=== PATIENT | female | born 1955 | race Caucasian/White ===

== ENCOUNTER 2017-04-17 16:37 | Emergency (ER) | payer OTHER ==
[2016-10-18 13:36] VITALS: BMI 24.8
[~2017-04-17 16:37] MED LIST: AMPICILLIN PO; CELEXA10 MG PO; GLUCOPHAGE500 MG PO; LISINOPRIL/HCTZ; LOPRESSOR25 MG PO; PRILOSEC20 MG PO
== END 2017-04-17 18:21 | disposition home or self-care (01) ==
LOC: D.ER 16:37
DX: S50.811A Abrasion of right forearm, initial encounter (principal); V43.52XA Car driver injured in collision with other type car in traffic accident, initial encounter; Y93.89 Activity, other specified; Y92.410 Unspecified street and highway as the place of occurrence of the external cause; S80.211A Abrasion, right knee, initial encounter; S20.219A Contusion of unspecified front wall of thorax, initial encounter; E11.9 Type 2 diabetes mellitus without complications; I10 Essential (primary) hypertension; F32.9 Major depressive disorder, single episode, unspecified

== ENCOUNTER 2018-10-23 10:05 | Day surgery (SDC) | payer OTHER ==
[~2018-10-23] VITALS: Ht 160 cm; Wt 68.0 kg
--- NOTE | ~2018-10-23 | OP ---
PATIENT NAME: KELVIN MORATAYA MEDICAL RECORD: [id number] :57 LOCATION:D.OPS ADMISSION DATE: SURGEON: AUDREY URBANO MD DATE OF OPERATION: 10/23/2018 PROCEDURE: EGD with biopsy. TRIM CREW SUPERVISOR: Audrey Urbano MD SCOPE: Olympus video gastroscope. MEDICATIONS: Per TIVA anesthesia. The patient received 150 mg of propofol for this procedure, O2 4 liters. INDICATION FOR THE PROCEDURE: Surveillance test for Le's esophagus. FINDINGS: Informed consent was given. The patient was made comfortable with the above medications after reaching an adequate level of sedation. By slow IV push, the patient was placed on her left side. The endoscope was then advanced under direct visualization through the posterior pharyngeal area and advanced to the distal esophagus. Evidence of Le's esophagus was appreciated in this area and multiple biopsies were obtained. The patient also had a hiatal hernia, which was small in size and was noted both on direct and retroflex views. On entering the stomach, the gastric mucosa was felt to be mildly inflamed throughout without erosions or ulcers. A histopathology H. pylori biopsy was taken at the antral area and sent to pathology for review. The duodenal bulb to the second portion had minimal inflammation present and a biopsy was taken in the second part of the duodenum. The scope was then withdrawn. IMPRESSION: 1. Very mild Le's esophagus, biopsied circumferentially. 2. Small hiatal hernia. 3. Mild gastritis, biopsy taken at the antral area. 4. Mild duodenitis, biopsy taken at the second part of the duodenum. PLAN: 1. The patient to follow reflux precautions stringently, both dietary and positional. No chocolate, tomato, citrus, caffeine, fatty foods, peppermint. The patient should avoid caffeine, tobacco, and alcohol if all of these are problematic. She should not lay down after for 2 hours after eating and sleep with the head of the bed elevated at least 6 inches if she refluxes during the nighttime hours. We will stop omeprazole and I have discussed this with the patient. This drug as well as all proton pump inhibitors can cause iron and calcium deficiency and leave the patient at some increased risk for viral and bacterial gastroenteritis. We will start her on famotidine at a dose of 40 mg p.o. b.i.d. and she should advise us if this is not helpful in controlling her Le's esophagus. 2. Caution with anti-inflammatory drugs. 3. Return to clinic on a p.r.n. basis. TRANSINT:[id number] Voice Confirmation ID: [id number] DOCUMENT ID: [id number] CC: Dr. Nelson Silva, not found OPERATIVE REPORT [id number] KELVIN MORATAYA BRENDA MD CC: OSIRIS DANIELSON MD [id number] DICTATION DATE: 10/23/18 1250 FARM INSTRUCTOR: 10/23/[address] [facility] [place] 10/23/18 [id number] [place] [address]
[2018-10-23 10:33] LABS: HEMATOCRIT 38.5 % (36.0-48.0); HEMOGLOBIN 12.4 g/dL (12-16); MCHC 32.2 g/dL (31.0-37.0); RBC 4.28 10x6/uL (4.00-5.40); RDW 13.5 % (11.5-14.5); WBC 7.3 10x3/uL (4.8-10.8)
[2018-10-23 10:43] VITALS: BP 121/40; Ht 160 cm; Wt 68.0 kg
[2018-10-23 10:48] LABS: ALBUMIN 3.9 g/dL (3.4-5.0); ANION GAP 12.6 mmol/L (8-16); BILIRUBIN - TOTAL 0.4 mg/dL (0.2-1.3); CALCIUM 8.6 mg/dL (8.5-10.1); CARBON DIOXIDE 29.7 mmol/L (21.0-32.0); CREATININE - SERUM 0.9 mg/dL (0.6-1.3); POTASSIUM - SERUM 4.3 mmol/L (3.5-5.1); PROTEIN - SERUM 7.6 g/dL (6.4-8.2)
--- NOTE | 2018-10-23 13:26 | NUR ---
PT GIVEN D/C INSTRUCTIONS AT THIS TIME, PT VERBALIZES UNDERSTANDING IV D/C AT THIS TIME, INTACT, NO REDNESS OR SWELLING AT SITE. PT AWAITING DR SANCHEZ TO SPEAK WITH THEM REGARDING PROCEDURE.
--- NOTE | 2018-10-23 13:55 | NUR ---
DR SANCHEZ SAW PT REGARDING PROCEDURE. PT LEFT UNIT AT 1356.
== END 2018-10-23 13:56 | disposition home or self-care (01) ==
LOC: D.OPS 10:05
PROVIDERS: Anesthesiology
DX: K22.70 Barrett's esophagus without dysplasia (principal); K44.9 Diaphragmatic hernia without obstruction or gangrene; K29.50 Unspecified chronic gastritis without bleeding; K29.80 Duodenitis without bleeding; Z01.812 Encounter for preprocedural laboratory examination

== ENCOUNTER 2018-11-13 10:50 | Day surgery (SDC) | payer OTHER ==
[~2018-11-13] VITALS: Ht 160 cm; Wt 68.2 kg
--- NOTE | ~2018-11-13 | OP ---
PATIENT NAME: KELVIN MORATAYA MEDICAL RECORD: [id number] :57 LOCATION:D.OPS ADMISSION DATE: SURGEON: AUDREY URBANO MD DATE OF OPERATION: 11/13/2018 PROCEDURE: Colonoscopy without biopsy or polypectomy. ORIENTAL RUG REPAIRER: Audrey Urbano MD SCOPE: Olympus video colonoscope. MEDICATIONS: Per TIVA. The patient had 200 mg of propofol IV push for this procedure, O2 at 4 liters. INDICATION FOR THE PROCEDURE: History of colon polyps. The patient's last colonoscopy was on 06/09/2014 and significant for normal small bowel, removal of a small polyp on the ileocecal valve with hot biopsy forceps technique, minimal left-sided diverticulosis without diverticulitis, and minimal hemorrhoids noted. The patient was seen to have spasm associated with irritable bowel syndrome as well as pelvic adhesions. She will have a recall surveillance colonoscopy on this date. FINDINGS: Informed consent was given. The patient was made comfortable with the above medications. After reaching an adequate level of sedation by slow IV push, the patient was placed on her left side. The rectal exam revealed good sphincter tone. No fissures or fistulas were appreciated. No external skin tags were seen. The colonoscope was advanced to the cecum, where ileocecal valve and appendiceal orifice were identified. On withdrawal of the scope, mucosa was carefully inspected. The patient had no polyps and no masses. Minimal left-sided diverticulosis without diverticulitis. Some spasm was observed on the left side of the colon. On retroflexion and final withdrawal of the scope, minimal internal hemorrhoids were appreciated. No external hemorrhoids were seen. The scope was then completely withdrawn. IMPRESSION: 1. Normal cecum. Normal ileocecal valve and appendiceal orifice. 2. Very minimal left-sided diverticulosis without diverticulitis. 3. Irritable bowel syndrome. 4. Pelvic adhesions. 5. Minimal internal hemorrhoids. PLAN: 1. Probiotics. 2. High-fiber diet. 3. Return to clinic on a p.r.n. basis. TRANSINT:[id number] Voice Confirmation ID: [id number] DOCUMENT ID: [id number] OPERATIVE REPORT [id number] KELVIN MORATAYA AUDREY URBANO MD CC: CAMMY HUNTLEY MD [id number] DICTATION DATE: 11/13/18 1350 WOOD DRILLING MACHINE OPERATOR: 11/13/18 1842 [facility] [place] 11/13/18 [facility] [address] [id number]
[2018-11-13 12:00] LABS: HEMATOCRIT 39.7 % (36.0-48.0); HEMOGLOBIN 12.8 g/dL (12-16); MCH 28.8 pg (26.0-34.0); MCHC 32.2 g/dL (31.0-37.0); MCV 89.2 fL (80.0-100.0); MEAN PLATELET VOLUME 12.1 fL (7.4-10.4); RBC 4.45 10x6/uL (4.00-5.40); RDW 13.6 % (11.5-14.5); WBC 7.6 10x3/uL (4.8-10.8)
[2018-11-13 12:12] LABS: ANION GAP 16.4 mmol/L (8-16); CALCIUM 8.5 mg/dL (8.5-10.1); CARBON DIOXIDE 29.1 mmol/L (21.0-32.0); CREATININE - SERUM 0.9 mg/dL (0.6-1.3); POTASSIUM - SERUM 3.5 mmol/L (3.5-5.1)
[2018-11-13 12:18] VITALS: BP 138/43; Ht 160 cm; Wt 68.2 kg
--- NOTE | 2018-11-13 12:31 | NUR ---
IV STARTED WITH 22G ANGIOCATH X 1 STICK, TOLERATED WELL
--- NOTE | 2018-11-13 14:35 | NUR ---
PATIENT TOLERATING FULL LIQUIDS WITHOUT NAUSEA, STATES PASSING LOTS OF FLATUS, RIGHT HAND PIV DC'D WITH TIP INTACT. PATIENT DRESSING IN PERSONAL CLOTHING
== END 2018-11-13 14:50 | disposition home or self-care (01) ==
LOC: D.OPS 10:50
PROVIDERS: Anesthesiology
DX: K63.5 Polyp of colon (principal)